=== PATIENT | male | born 1995 | race Caucasian/White ===

== ENCOUNTER 2017-04-13 22:56 | Emergency (ER) | payer SELFPAY ==
[~2017-04-13] VITALS: Ht 177.8 cm; Wt 92.5 kg
[2017-04-13 23:00] VITALS: Ht 177.8 cm; Wt 92.5 kg
[2017-04-13] MEDS ORDERED: CYCL-319 PO (23:55)
[2017-04-13] MEDS ORDERED: IBUP400T22 PO (23:55)
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
== END 2017-04-14 01:35 | disposition home or self-care (01) ==
LOC: FTE 22:56
DX: S13.4XXA Sprain of ligaments of cervical spine, initial encounter (principal); R07.9 Chest pain, unspecified; V89.2XXA Person injured in unspecified motor-vehicle accident, traffic, initial encounter; Z87.891 Personal history of nicotine dependence
CPT/HCPCS: 71010